=== PATIENT | female | born 1930 | race Caucasian/White ===

== ENCOUNTER 2017-05-20 04:51 | Emergency (ER) | payer OTHER ==
--- NOTE | 2017-05-20 04:56 | PDOC ---
History of Present Illness - General Chief Complaint: Pain, Acute Stated Complaint: ABDOMINAL PAIN Time Seen by Provider: 05/20/17 04:56 - History of Present Illness Initial Comments: 05/20/17 05:04 This 86-year-old woman with a history of HTN/HLD/breast carcinoma , accompanied by her daughter, presents with 2 day history of bilateral lower quadrant abdominal pain that she has felt only at night. Pain is steady in nature and began evening of 05/18, severe overnight and improving during the day. Tonight, abdominal pain recurred and was more severe than the previous night. There has been a decrease in appetite but no nausea/vomiting/diarrhea. Last bowel movement was evening of 05/19 and was normal. No blood/melena noted. No history of fever/chills. Patient has had dysuria/urinary frequency/mild urinary urgency for "a while". No history of hematuria or back pain. Medical record reveals patient had dx of UTI 03/27/17; ultrasound of bladder and kidneys at that time revealed moderate postvoid residual urine (73 mL) but no other significant abnormalities. Patient has had history of UTIs in the past but no history of pyelonephritis or complicated UTI. . No history of diverticulitis/small bowel obstruction or other abdominal issues. Patient and her daughter believe that the patient has had colonoscopy in the past but neither can recall any abnormality found on the study. Patient denies chest pain/shortness of breath. Patient has had a gradual decrease in appetite/decreased PO intake over the last several months with a small weight loss PMD-Dr. Safia Zhou PMH As above Right sided breast cancer-lumpectomy+ radiation approximately 5 years ago (Dr. Voss) s/p abdominal hysterectomy many years ago NO KNOWN DRUG ALLERGIES Medications as noted below Patient lives with her . No smoking history. Occasional alcohol use; no other recreational drug use 05/20/17 06:22 Past History - Past Medical History Allergies/Adverse Reactions: Allergies Allergy/AdvReac Type Severity Reaction Status Date / Time No Known Drug Allergies Allergy Verified 04/10/13 11:53 Home Medications: Ambulatory Orders Simvastatin [Zocor] 40 mg PO DAILY 04/10/13 Valsartan/Hydrochlorothiazide [Diovan Hct 160-12.5 mg Tablet] 1 combo PO DAILY 04/10/13 Sulfamethoxazole/Trimethoprim [Bactrim Ds -] 1 tab PO BID #10 tablet 05/20/17 Vit A/Vit C/Vit E/Zinc/Copper [Preservision Areds Softgel] 1 each PO DAILY 05/20 Anemia: No Asthma: No Cardiac Disorders: No CVA: No COPD: No CHF: No Dementia: No Diabetes: No GI Disorders: No Disorders: No HTN: Yes (CONTROLLED) Hypercholesterolemia: Yes Liver Disease: No Seizures: No Thyroid Disease: No - Surgical History Abdominal Surgery: No Appendectomy: No Cardiac Surgery: No Cholecystectomy: No Lung Surgery: No Orthopedic Surgery: No - Suicide/Smoking/Psychosocial Hx Smoking History: Never smoked Have you smoked in the past 12 months: No Hx Alcohol Use: Yes (WINE VERY RARELY) Drug/Substance Use Hx: No Substance Use Type: Alcohol Hx Substance Use Treatment: No Review of Systems - Review of Systems Able to Perform ROS?: Yes Comments:: 12 point review of systems is negative except for what is noted in the history of present illness *Physical Exam - Physical Exam Comments: GENERAL: Elderly female, alert and oriented 3, in mild distress secondary to lower abdominal pain HEAD: Normal with no signs of trauma. EYES: PERRLA, EOMI, sclera anicteric, conjunctiva clear. ENT: Ears normal, nares patent, oropharynx clear without exudates. Dry mucous membranes. NECK: Normal range of motion, supple without lymphadenopathy, JVD, or masses. LUNGS: Breath sounds equal, clear to auscultation bilaterally. No wheezes, and no crackles. HEART:Regular rate and rhythm, normal S1 and S2 without murmur, rub or gallop. ABDOMEN:.normal bowel sounds. Moderate suprapubic and I lateral lower quadrant tenderness. No guarding or rebound.No masses No distention. EXTREMITIES: Normal range of motion, no edema. No clubbing or cyanosis. No erythema, or tenderness. NEUROLOGICAL: Cranial nerves II through XII grossly intact. Normal speech. No focal neurological deficits. MUSCULOSKELETAL: Back non-tender to palpation, no CVA tenderness SKIN: Warm, Dry, normal turgor, no rashes or lesions noted. 12-lead electrocardiogram is performed and interpreted by me: Normal sinus rhythm at 66 bpm; there is left axis deviation. Intervals and wave forms are normal. There is no evidence of acute ST or T-wave abnormalities. Portable chest x-ray is performed: Preliminary results-no effusion/infiltrate/ masses. Cardiac silhouette is normal without evidence of cardiomegaly. Chest x -ray is unchanged from previous study dated 04/10/13 ED Treatment Course - LABORATORY CBC & Chemistry Diagram: 05/20/17 05:15 05/20/17 05:15 Progress Note - Progress Note Progress Note: This 86-year-old woman with a history of HTN /HLD/breast carcinoma presents with 2 day history of progressive lower abdominal pain. Patient has dysuria/ urinary frequency/urgency for several weeks; no clear history of this worsening in the last few days. Patient has no associated symptoms except decreased appetite. On exam, patient is afebrile with normal heart rate/blood pressure. Abdominal exam notable for moderate bilateral lower quadrant tenderness without rebound or guarding. Although patient may have underlying cystitis, because of the progressive nature of the patient's pain, other processes such as acute diverticulitis should be ruled out. CBC/chemistry profile/INR/UA/lactate sent. Planning for abdominal/pelvic CT with IV contrast Medical Decision Making - Medical Decision Making 05/20/17 06:23 Patient and her daughter report that lower abdominal pain has nearly completely resolved. Patient has no other new symptoms.Exam is improved with resolution of tenderness in lower abdomen. No medications were given to the patient. She provided a urine sample but did not pass gas or have a bowel movement in the interim. Although patient states that feels good enough to go home, it was explained to the patient that it would be zuniga to wait until lab results are completed. 05/20/17 07:00 Chemistry profile/lactic acid/UA completed: Mild prerenal azotemia but no other significant abnormalities in the chemistry profile. Lactic acid is normal at 1.9 Urinalysis shows 3+ LE, 94 rbc's/7WBCs/rare epi/rare bacteria. Urine sent for culture and sensitivity. Daughter states that patient does very well with Bactrim DS for her urinary tract infections. Bactrim DS one tablet will be given now and prescription for Bactrim DS twice a day for 5 days will be sent to her pharmacy. *DC/Admit/Observation/Transfer Diagnosis at time of Disposition: UTI (urinary tract infection) Qualifiers: Urinary tract infection type: acute cystitis Hematuria presence: without hematuria Qualified Code(s): N30.00 - Acute cystitis without hematuria - Discharge Dispostion Disposition: HOME Condition at time of disposition: Stable - Prescriptions Prescriptions: Sulfamethoxazole/Trimethoprim [Bactrim Ds -] 1 tab PO BID #10 tablet - Referrals Referrals: Safia Zhou [Primary Care Provider] - 3 days - Patient Instructions Printed Discharge Instructions: Urinary Tract Infection Additional Instructions: Drink plenty of water Bactrim DS twice a day for 5 days Take other medications as previously prescribed Plan to follow up with Dr. Zhou within the next 3-4 days Return to ER immediately if you have severe abdominal pain/fever/vomiting - Post Discharge Activity
[2017-05-20 05:02] VITALS: BP 147/77; PULSE 66; TEMP 97.4; BMI 24.7
[2017-05-20 06:50] LABS: BLOOD UREA NITROGEN 21 mg/dl (7-18); CREATININE 0.8 mg/dl (0.6-1.3); GLUCOSE,RANDOM 134 mg/dl (74-106); POTASSIUM 3.8 mmol/L (3.5-5.1); SODIUM 143 mmol/L (136-145); URINE APPEARANCE SLCLOUDY; URINE BILIRUBIN NEGATIVE (<2.0 mg/dL); URINE BLOOD NEGATIVE (NEGATIVE); URINE COLOR YELLOW; URINE GLUCOSE (UA) NEGATIVE (NEGATIVE); URINE KETONE TRACE (NEGATIVE); URINE NITRITE NEGATIVE (NEGATIVE); URINE PROTEIN NEGATIVE (NEGATIVE)
[2017-05-20 06:51] LABS: ALK PHOS 71 U/L (32-92); ANION GAP 11 (8-16); BASO % 0.5 % (0-2.0); BILIRUBIN,TOTAL 0.7 mg/dl (0.2-1.0); CALCIUM 8.8 mg/dl (8.4-10.2); CHLORIDE 106 mmol/L (98-107); CO2 26 mmol/L (22-28); EOS % 1.2 % (0-4.5); HEMATOCRIT 37.6 % (32.4-45.2); HEMOGLOBIN 12.8 GM/dL (10.7-15.3); LYMPH % 14.3 % (8-40); MCH 28.5 pg (25.7-33.7); MEAN PLT VOLUME 7.9 fl (7.5-11.1); MONO % 6.2 % (3.8-10.2); NEUT % 77.8 % (42.8-82.8); PLATELET COUNT 224 K/MM3 (134-434); RBC 4.48 M/mm3 (3.60-5.2); RDW 14.3 % (11.6-15.6); SGOT/AST 18 U/L (10-42); SGPT/ALT 20 U/L (10-40); TOT PROT 7.1 g/dl (6.4-8.3); URINE LEUK ESTERASE 3+ (NEGATIVE)
[2017-05-20 06:52] LABS: CALCIUM OXALATE CRYSTALS FEW /hpf (NONE SEEN); EPI CELLS RARE /HPF (FEW); URINE BACTERIA RARE /hpf (NONE SEEN); URINE MUCUS RARE
[2017-05-20] MEDS ORDERED: SULFAMETHOXAZOLE/TRIMETHOPRIM 800MG/160MG D.S. TABLET PO ONE (06:59)
[2017-05-20] MEDS ORDERED: SULFAMETHOXAZOLE/TRIMETHOPRIM 800MG/160MG D.S. TABLET ONE (07:01)
[2017-05-20 11:23] LABS: INR 0.96 (0.82-1.09); PROTHROMBIN TIME (PATIENT) 10.8 SEC (9.98-11.88)
--- NOTE | 2017-05-23 12:37 | EKG ---
Test Reason : Blood Pressure : / mmHG Vent. Rate : 066 BPM Atrial Rate : 066 BPM P-R Int : 206 ms QRS Dur : 072 ms QT Int : 378 ms P-R-T Axes : 056 -42 037 degrees QTc Int : 396 ms NORMAL SINUS RHYTHM LEFT AXIS DEVIATION NONSPECIFIC ST ABNORMALITY ABNORMAL ECG NO PREVIOUS ECGS AVAILABLE Confirmed by ZI HINDS MD ([id number]) on 05/23/2017 12:36:45 PM Referred By: MD ROGER Confirmed By:ZI HINDS MD
== END 2017-05-20 07:11 | disposition home or self-care (01) ==
LOC: FER 04:51
DX: N30.00 Acute cystitis without hematuria (principal); I10 Essential (primary) hypertension; E78.5 Hyperlipidemia, unspecified; Z85.3 Personal history of malignant neoplasm of breast
CPT/HCPCS: 36415; 71045-TC-FY; 80053; 81003; 81015; 82550; 83605; 84484; 85025; 85610; 87086; 87186; 93005; 99283-25

== ENCOUNTER 2017-06-07 11:59 | Emergency (ER) | payer OTHER ==
--- NOTE | 2017-06-07 12:05 | PDOC ---
History of Present Illness - General Chief Complaint: Lightheaded Stated Complaint: DIZZINESS Time Seen by Provider: 06/07/17 12:05 History Source: Patient Exam Limitations: No Limitations - History of Present Illness Initial Comments: 86 yo F hx HTN presents with dizziness for past 1 week. She further describes it as a lightheadedness. She states that it usually happens when she stands from a seated or prone position. Usually she states that it is self-limited. It lasts for a few seconds then resolves. She states she does not feel as if the room is spinning, and she does not have symptoms with turning her head from side to side. No head injury. No weakness, numbness, vision changes, cp, SOB. She states that she fell 5 days ago due to the lightheadedness. No LOC. She states she has had recent poor appetite, poor PO intake of liquids and solids. NIH Stroke Scale - Last Known Well Date/Time & Onset Date Last Known Well: 05/31/17 - Initial Evaluation Level of consciousness: Alert Ask patient the month and their age: Answers both correctly Ask patient to open & close eyes; make fist and let go: Obeys both correctly Best gaze (horizontal eye movement): Normal Visual field testing: No visual field loss Facial paresis (Show teeth/raise eyebrows/close eyes tight): Normal symmetrical movement Motor Function: Left Arm: Normal Motor Function: Right Arm: Normal (extends arm 90 (or 45) degrees for 10 seconds without drift Motor Function: Left Leg: Normal (extends leg 30 degrees for 5 seconds without drift) Motor Function: Right Leg: Normal (extends leg 30 degrees for 5 seconds without drift) Limb Ataxia: No ataxia Sensory(Use pinprick test arms,legs,trunk,face/side to side): Normal Best language (Describe picture, name items, read sentences): No Aphasia Dysarthria (read several words): Normal articulation Extinction and Inattention: No abnormality - Total Score NIH Stroke Scale Score: 0 Past History - Past Medical History Allergies/Adverse Reactions: Allergies Allergy/AdvReac Type Severity Reaction Status Date / Time No Known Drug Allergies Allergy Verified 06/07/17 12:01 Home Medications: Ambulatory Orders Simvastatin [Zocor] 40 mg PO DAILY 04/10/13 Valsartan/Hydrochlorothiazide [Diovan Hct 160-12.5 mg Tablet] 1 combo PO DAILY 04/10/13 Vit A/Vit C/Vit E/Zinc/Copper [Preservision Areds Softgel] 1 each PO DAILY 05/20 Anastrozole [Arimidex -] 1 mg PO DAILY 06/07/17 Anemia: No Asthma: No Cancer: Yes (BREAST W/LUMPECTOMY AND RADIATION) Cardiac Disorders: No CVA: No COPD: No CHF: No Dementia: No Diabetes: No GI Disorders: No Disorders: No HTN: Yes (CONTROLLED) Hypercholesterolemia: Yes Liver Disease: No Seizures: No Thyroid Disease: No - Surgical History Abdominal Surgery: No Appendectomy: No Cardiac Surgery: No Cholecystectomy: No Lung Surgery: No Orthopedic Surgery: No - Suicide/Smoking/Psychosocial Hx Smoking History: Never smoked Have you smoked in the past 12 months: No Hx Alcohol Use: Yes (WINE VERY RARELY) Drug/Substance Use Hx: No Substance Use Type: Alcohol Hx Substance Use Treatment: No Review of Systems - Review of Systems Able to Perform ROS?: Yes Comments:: GENERAL/CONSTITUTIONAL: No fever or chills. No weakness. HEAD, EYES, EARS, NOSE AND THROAT: No change in vision. No ear pain or discharge. No sore throat. CARDIOVASCULAR: No chest pain or shortness of breath. RESPIRATORY: No cough, wheezing, or hemoptysis. GASTROINTESTINAL: No nausea, vomiting, diarrhea or constipation. GENITOURINARY: No dysuria, frequency, or change in urination. MUSCULOSKELETAL: No joint or muscle swelling or pain. No neck or back pain. SKIN: No rash NEUROLOGIC: No headache, vertigo, loss of consciousness, or change in strength/ sensation. ENDOCRINE: No increased thirst. No abnormal weight change. HEMATOLOGIC/LYMPHATIC: No anemia, easy bleeding, or history of blood clots. ALLERGIC/IMMUNOLOGIC: No hives or skin allergy. *Physical Exam - Physical Exam Comments: GENERAL: Awake, alert, and fully oriented, in no acute distress HEAD: No signs of trauma EYES: PERRLA, EOMI, sclera anicteric, conjunctiva clear ENT: Auricles normal inspection, hearing grossly normal, nares patent, oropharynx clear without exudates. Dry mucosa NECK: Normal ROM, supple, no lymphadenopathy, JVD, or masses LUNGS: Breath sounds equal, clear to auscultation bilaterally. No wheezes, and no crackles HEART: Regular rate and rhythm, normal S1 and S2, no murmurs, rubs or gallops ABDOMEN: Soft, nontender, normoactive bowel sounds. No guarding, no rebound. No masses EXTREMITIES: Normal range of motion, no edema. No clubbing or cyanosis. No cords, erythema, or tenderness NEUROLOGICAL: Cranial nerves II through XII grossly intact. Normal speech, normal gait. Motor and sensation intact. SKIN: Warm, Dry, normal turgor, no rashes or lesions noted. Heart Score/ECG Review - ECG Impressions Comment:: EKG read 12:26- NSR 62 bpm, no acute ST/T changes ED Treatment Course - LABORATORY CBC & Chemistry Diagram: 06/07/17 12:30 06/07/17 12:30 Medical Decision Making - Medical Decision Making 06/07/17 12:44 Pt presents with lightheadedness. Appears dehydrated on physical exam, likely due to poor PO intake. However, DDx also includes electrolyte abnormality, UTI, CVA (very unlikely, as NIHSS is 0). Will obtain basic labs, UA, EKG, and CTH. 06/07/17 13:06 CT results d/w patient and family at bedside. Awaiting CMP and UA. 06/07/17 14:44 Results reviewed with patient. She states she is feeling better. I also discussed with Dr. Zhou via phone, will have patient f/u with her in 1 week. *DC/Admit/Observation/Transfer Diagnosis at time of Disposition: Dehydration - Discharge Dispostion Disposition: HOME Condition at time of disposition: Improved Admit: No - Referrals Referrals: Safia Zhou [Primary Care Provider] - - Patient Instructions Printed Discharge Instructions: DI for Dehydration -- Adult - Post Discharge Activity
[2017-06-07 12:11] VITALS: TEMP 97.9; BMI 25.6
[2017-06-07 12:53] LABS: BASO % 1.7 % (0-2.0); HEMATOCRIT 34.4 % (32.4-45.2); HEMOGLOBIN 12.3 GM/dl (10.7-15.3); LYMPH % 32.6 % (8-40); MCHC 35.6 g/dl (32.0-36.0); MEAN CELL VOLUME 84.1 fl (80-96); MEAN PLT VOLUME 7.2 fl (7.5-11.1); MONO % 11.2 % (3.8-10.2); NEUT % 52.5 % (42.8-82.8); PLATELET COUNT 235 K/MM3 (134-434); RBC 4.09 M/mm3 (3.60-5.2); RDW 12.9 % (11.6-15.6); WHITE BLOOD COUNT 4.3 K/mm3 (4.0-10.8)
[2017-06-07] MEDS ORDERED: SODIUM CHLORIDE 1,000 ML IV STA (13:00)
[2017-06-07 13:04] LABS: ALBUMIN 4.3 g/dl (3.5-5.0); ALK PHOS 57 U/L (32-92); ANION GAP 5 (8-16); BILIRUBIN,TOTAL 0.7 mg/dl (0.2-1.0); BLOOD UREA NITROGEN 23 mg/dl (7-18); CALCIUM 9.1 mg/dl (8.4-10.2); CHLORIDE 100 mmol/L (98-107); CO2 28 mmol/L (22-28); GLUCOSE,RANDOM 95 mg/dl (74-106); POTASSIUM 3.7 mmol/L (3.5-5.1); SGOT/AST 21 U/L (10-42); SGPT/ALT 16 U/L (10-40); SODIUM 133 mmol/L (136-145); TOT PROT 6.9 g/dl (6.4-8.3)
[2017-06-07 13:32] LABS: CREATININE < 0.8 mg/dl (0.6-1.3)
[2017-06-07 13:52] LABS: URINE APPEARANCE Clear; URINE BILIRUBIN Negative (NEGATIVE); URINE BLOOD Negative (NEGATIVE); URINE GLUCOSE (UA) Negative (NEGATIVE); URINE KETONE Trace (NEGATIVE); URINE NITRITE Negative (NEGATIVE); URINE UROBILINOGEN 0.2 (0.2-1.0)
[2017-06-07 13:59] LABS: URINE COLOR YELLOW; URINE LEUK ESTERASE 1+ (NEGATIVE); URINE PROTEIN 1+ (NEGATIVE)
[2017-06-07 14:29] LABS: EPI CELLS FEW /HPF; URINE RBC 0-3 /hpf (0-3)
[2017-06-07 14:31] LABS: URINE BACTERIA NONE SEEN /hpf (NEGATIVE)
[2017-06-07 15:11] VITALS: BP 129/65; PULSE 78
--- NOTE | 2017-06-08 10:37 | EKG ---
Test Reason : Blood Pressure : / mmHG Vent. Rate : 062 BPM Atrial Rate : 062 BPM P-R Int : 208 ms QRS Dur : 082 ms QT Int : 402 ms P-R-T Axes : 064 -43 059 degrees QTc Int : 408 ms NORMAL SINUS RHYTHM LEFT AXIS DEVIATION ABNORMAL ECG WHEN COMPARED WITH ECG OF 20-MAY-2017 05:35, NO SIGNIFICANT CHANGE WAS FOUND Confirmed by COLTEN GOTTI, EMILY ([id number]) on 06/08/2017 10:37:28 AM Referred By: DR LAMBERT Confirmed By:EMILY ABEL MD
== END 2017-06-07 14:45 | disposition home or self-care (01) ==
LOC: FER 11:59
PROC: 3E0337Z Introduction of Electrolytic and Water Balance Substance into Peripheral Vein, Percutaneous Approach (ICD-10-PCS; principal; 2017-06-07)
DX: E86.0 Dehydration (principal); Z85.3 Personal history of malignant neoplasm of breast; I10 Essential (primary) hypertension; E78.00 Pure hypercholesterolemia, unspecified
CPT/HCPCS: 36415; 70450-TC; 80053; 81003; 81015; 85025; 93005; 96360; 99285-25; J7030